=== PATIENT | female | born 1995 | race Two or more races ===

== ENCOUNTER 2019-03-08 03:40 | Emergency (ER) | payer SELFPAY ==
[~2019-03-08] VITALS: Ht 167.6 cm; Wt 70.3 kg
[2019-03-08] MEDS ORDERED: IV NORMAL SALINE 1000ML BAG 1,000 ML IV ONE (04:00)
[2019-03-08 04:32] LABS: BASO % 0 % (0-3); EOS # 0.1 x10^3/uL (0.0-0.7); EOS % 1 % (0-3); HEMOGLOBIN 15.2 g/dL (12.0-15.5); LYMPH # 2.5 x10^3/uL (1.0-4.8); LYMPH % 29 % (24-48); MEAN CORPUSCULAR HEMOGLOBIN 29 pg (25-35); MEAN CORPUSCULAR HGB CONC 35 g/dL (31-37); MEAN CORPUSCULAR VOLUME 82 fL (79-100); MONO # 0.7 x10^3/uL (0.0-1.1); MONO % 8 % (0-9); NEUT # 5.4 x10^3/uL (1.8-7.7); NEUT % 62 % (31-73); PLATELET COUNT 210 x10^3/uL (140-400); RED BLOOD COUNT 5.27 x10^6/uL (3.50-5.40); RED CELL DISTRIBUTION WIDTH 13.9 % (11.5-14.5); WHITE BLOOD COUNT 8.7 x10^3/uL (4.0-11.0)
--- NOTE | 2019-03-08 04:38 | PHYS DOC ---
Past Medical History Past Medical History: Diabetes-Type II Past Surgical History: No Surgical History Smoking: Cigarettes, Less than 1pk/day Alcohol Use: Occasionally Drug Use: None Adult General Chief Complaint Chief Complaint: VAGINAL BLEEDING HPI HPI Ms. Hall is a 23yo F w/ PMH significant for T2DM and previous spontaneous presents with heavy vaginal bleeding and lower abdominal cramping of 1 day duration. She brought in a 3cm sized tissue/clot that was passed. Patient was previously seen by their OBGYN on Monday for confirmation of and again yesterday due to light vaginal bleeding. She states that "everything checked out fine" at yesterday's appointment. She states she experiences regular menstrual cycles with "normal" regular flow. Previous spontaneous occurred about 1.5 years ago; was 1 month along. Review of Systems Review of Systems Constitutional: Denies fever or chills Eyes: Denies redness or eye pain HENT: Denies nasal congestion or sore throat Respiratory: Denies cough or shortness of breath Cardiovascular: Denies chest pain or palpitations GI: Reports lower abdominal pain. Denies nausea or vomiting. 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 Current Medications Current Medications Current Medications Medications (Trade) Dose Ordered Sig/Roselyn Start Time Stop Time Status Last Admin Dose Admin Insulin Human Regular (HumuLIN R VIAL) 14 unit 1X ONCE 03/08/19 06:00 03/08/19 06:01 DC 03/08/19 06:04 14 UNIT Sodium Chloride 1,000 ml @ 1,000 mls/hr 1X ONCE 03/08/19 04:00 03/08/19 04:59 DC 03/08/19 04:52 1,000 MLS/HR Allergies Allergies Allergies Coded Allergies Type Severity Reaction Last Updated Verified No Known Drug Allergies 03/08/19 No Physical Exam Physical Exam Constitutional: Well developed, well nourished, no acute distress, non-toxic appearance HENT: Normocephalic, atraumatic, oropharynx moist Eyes: Conjunctiva normal, no discharge Neck: Normal range of motion, no tenderness, supple Cardiovascular: Heart rate normal, regular rhythm w/o gallops, rubs, or murmurs. Lungs & Thorax: Bilateral breath sounds clear to auscultation throughout, no wheezing Abdomen: Soft, non-distended, lower abdominal tenderness Pelvic: Interlocking Installer- Anjelica RN, external genitalia normal, significant clot noted in vaginal vault, tissue noted in open os which was removed with ring foreceps, no CMT, no adnexal tenderness Skin: Warm, dry, no erythema, no rash Back: No tenderness, no CVA tenderness Extremities: No tenderness, ROM intact, no edema Neurologic: Alert and oriented X 3, normal motor function, normal sensory function, no focal deficits noted Psychologic: Affect normal, judgement normal, mood normal Current Patient Data Vital Signs Vital Signs Date Time Temp Pulse Resp B/P (MAP) Pulse Ox O2 Delivery O2 Flow Rate FiO2 03/08/19 03:46 98.6 82 17 156/97 (116) 99 Room Air 98.6 Lab Values Laboratory Tests Test 03/08/19 04:05 03/08/19 04:15 Maternal Serum HCG Beta Subunit 343 mIU/mL (0-5) H Sodium Level 133 mmol/L (136-145) L Potassium Level 3.6 mmol/L (3.5-5.1) Chloride Level 96 mmol/L (98-107) L Carbon Dioxide Level 27 mmol/L (21-32) Anion Gap 10 (6-14) Blood Urea Nitrogen 11 mg/dL (7-20) Creatinine 0.7 mg/dL (0.6-1.0) Estimated GFR (Cockcroft-Gault) 105.6 BUN/Creatinine Ratio 16 (6-20) Glucose Level 439 mg/dL (70-99) H Calcium Level 9.5 mg/dL (8.5-10.1) Magnesium Level 1.7 mg/dL (1.8-2.4) L Total Bilirubin 0.4 mg/dL (0.2-1.0) Aspartate Amino Transferase (AST) 5 U/L (15-37) L Alanine Aminotransferase (ALT) 13 U/L (14-59) L Alkaline Phosphatase 162 U/L (46-116) H Total Protein 7.9 g/dL (6.4-8.2) Albumin 3.8 g/dL (3.4-5.0) Albumin/Globulin Ratio 0.9 (1.0-1.7) L White Blood Count 8.7 x10^3/uL (4.0-11.0) Red Blood Count 5.27 x10^6/uL (3.50-5.40) Hemoglobin 15.2 g/dL (12.0-15.5) Hematocrit 43.0 % (36.0-47.0) Mean Corpuscular Volume 82 fL (79-100) Mean Corpuscular Hemoglobin 29 pg (25-35) Mean Corpuscular Hemoglobin Concent 35 g/dL (31-37) Red Cell Distribution Width 13.9 % (11.5-14.5) Platelet Count 210 x10^3/uL (140-400) Neutrophils (%) (Auto) 62 % (31-73) Lymphocytes (%) (Auto) 29 % (24-48) Monocytes (%) (Auto) 8 % (0-9) Eosinophils (%) (Auto) 1 % (0-3) Basophils (%) (Auto) 0 % (0-3) Neutrophils # (Auto) 5.4 x10^3/uL (1.8-7.7) Lymphocytes # (Auto) 2.5 x10^3/uL (1.0-4.8) Monocytes # (Auto) 0.7 x10^3/uL (0.0-1.1) Eosinophils # (Auto) 0.1 x10^3/uL (0.0-0.7) Basophils # (Auto) 0.0 x10^3/uL (0.0-0.2) Laboratory Tests 03/08/19 04:15 Laboratory Tests 03/08/19 04:05 Microbiology 03/08/19 Wet Prep - Final, Complete Microbiology 03/08/19 Wet Prep - Final, Complete EKG EKG [] Radiology/Procedures Radiology/Procedures Preliminary US findings were negative for products of conception contained within the uterus.[] Course & Med Decision Making Course & Med Decision Making Pertinent Labs and Imaging studies reviewed. (See chart for details) Patient presented w/ vaginal bleeding during 1st trimester. Tissue sample sent for pathology. Preliminary US negative for intrauterine . Pelvic exam performed w/ chlamydia and gonorrhea testing. Empiric antibiotics deferred. Wet mount negative. Rh positive. Hyperglycemia addressed. Patient stable for discharge with outpatient follow-up with CLAY MACHINE OPERATOR. Discussed findings and plan with patient and family, who acknowledge understanding and agreement. Dragon Disclaimer Dragon Disclaimer This electronic medical record was generated, in whole or in part, using a voice recognition dictation system. Departure Departure Impression: Primary Impression: Spontaneous Additional Impression: Hyperglycemia Disposition: 01 HOME, SELF-CARE Condition: STABLE Patient Instructions: Hyperglycemia, [id number], Miscarriage, [id number] Problem Qualifiers CAREY GRAHAM DO Mar 08, 2019 04:38
[2019-03-08 04:42] LABS: CALCIUM 9.5 mg/dL (8.5-10.1); CREATININE 0.7 mg/dL (0.6-1.0); GFR 105.6; POTASSIUM 3.6 mmol/L (3.5-5.1)
[2019-03-08 04:47] LABS: ALBUMIN 3.8 g/dL (3.4-5.0); ALBUMIN/GLOBULIN RATIO 0.9 (1.0-1.7); MAGNESIUM 1.7 mg/dL (1.8-2.4); TOTAL BILIRUBIN 0.4 mg/dL (0.2-1.0); TOTAL PROTEIN 7.9 g/dL (6.4-8.2)
--- NOTE | 2019-03-08 05:38 | RAD ---
INDICATION: Vaginal bleeding in COMPARISON: None. TECHNIQUE: Grayscale and color ultrasound images uterus and adnexa. Transabdominal and transvaginal images obtained. FINDINGS: Uterus: 85 x 51 x 39 mm. Endometrial Stripe: 12 mm. Right Ovary: 27 x 32 x 18 mm. Left Ovary: 18 x 15 x 12 mm. Vascular flow identified to bilateral ovaries. Small free fluid in the pelvis. Cystic lesion right adnexa measuring about 18 mm. IMPRESSION: 1. No intrauterine gestational sac is identified. 2. Small free fluid within the pelvis. 3. Vascular flow seen in the bilateral ovaries. 4. Cystic structure right adnexa. Could be from a dominant follicle on the right ovary which is the most likely cause however if the patient has a positive beta hCG follow-up could be obtained to ensure that there is no alternative cause such as ectopic. Electronically signed by: Chris Jo MD (03/08/2019 5:35 AM) [facility]
[2019-03-08] MEDS ORDERED: INSULIN REGULAR 100 UNIT/ML 3ML VIAL. SQ ONE ×2 (06:00→07:45)
[2019-03-08 07:24] VITALS: BP 122/82
--- NOTE | 2019-03-11 17:06 | PATHOLOGY ---
[facility] Accession Number: [id number] . 01 Material submitted: . PART A: product of conception - PRODUCTS OF CONCPETION AT 0420 PART B: product of conception - PRODUCTS OF CONCEPTION AT 0510 . 01 Clinical history: . None provided. . 02 Diagnosis: A. Tissue designated "products of conception #1": - Products of conception, comprised of a few immature chorionic villi showing mild hydropic degenerative changes, and portion of decidual cast showing focal hemorrhage and acute inflammation. . B. Tissue designated "products of conception #2": - Portion of decidual cast showing focal hemorrhage and acute inflammation. - No chorionic villi identified. (JPM:shaunna; 03/11/2019) MBR/03/11/2019 . 02 Electronically signed: . Davin Tsai MD, Pathologist NPI- [id number] . 01 Gross description: . A. Received fresh labeled "[place], products of conception" is a 4 g, 5.2 x 2.3 x 1.0 cm portion of red-brown friable soft tissue. No parts are identified. The specimen is submitted entirely in cassettes A1-A3. . B. Received fresh labeled "Rafael Deida, products of conception" is a 5 g, 6.6 x 5.0 x 0.5 cm portion of red-brown friable soft tissue. No parts are identified. Personnel Psychologist sections are submitted in cassettes B1-B3. ([facility]; 03/10/2019) SYC/SYC . 02 Pathologist provided ICD-10: O02.9 . 02 CPT . 332739, 284218 Specimen Comment: A courtesy copy of this report has been sent to Specimen Comment: [phone], . Specimen Comment: Report sent to / DR GRAHAM Performed at: 01 [facility] [address], [place], [place] [id number] MD Ajay Vance MD Phone: [phone] Performed at: 02 [facility] [address], [place] [id number] MD Davin Tsai MD Phone: [phone]
[2019-03-11 17:09] LABS: GC PROBE Negative (Negative)
== END 2019-03-08 07:44 | disposition home or self-care (01) ==
LOC: ER 03:40
DX: O03.9 Complete or unspecified spontaneous abortion without complication (principal); E11.65 Type 2 diabetes mellitus with hyperglycemia; O99.331 Smoking (tobacco) complicating pregnancy, first trimester; F17.210 Nicotine dependence, cigarettes, uncomplicated; Z3A.01 Less than 8 weeks gestation of pregnancy
CPT/HCPCS: 36415; 36430; 76801; 76817; 80053; 82962; 83735; 84702; 85025; 86850; 86900; 86901; 87491; 87591; 96360; 96372; 99285; J1815; J2791; J7030; Q0111

== ENCOUNTER 2019-09-04 13:24 | Emergency (ER) | payer SELFPAY ==
[~2019-09-04] VITALS: Ht 175.3 cm; Wt 70.0 kg
[2019-09-04 15:56] LABS: BASO % 1 % (0-3); EOS % 1 % (0-3); HEMATOCRIT 41.3 % (36.0-47.0); HEMOGLOBIN 14.4 g/dL (12.0-15.5); LYMPH # 2.2 x10^3/uL (1.0-4.8); LYMPH % 31 % (24-48); MEAN CORPUSCULAR HEMOGLOBIN 28 pg (25-35); MEAN CORPUSCULAR HGB CONC 35 g/dL (31-37); MEAN CORPUSCULAR VOLUME 80 fL (79-100); MONO # 0.4 x10^3/uL (0.0-1.1); MONO % 6 % (0-9); NEUT # 4.4 x10^3/uL (1.8-7.7); NEUT % 62 % (31-73); PLATELET COUNT 249 x10^3/uL (140-400); RED BLOOD COUNT 5.16 x10^6/uL (3.50-5.40); RED CELL DISTRIBUTION WIDTH 14.1 % (11.5-14.5); WHITE BLOOD COUNT 7.1 x10^3/uL (4.0-11.0)
[2019-09-04 15:57] LABS: BILIRUBIN,URINE NEGATIVE (NEG); CLARITY,URINE CLEAR; COLOR,URINE YELLOW; NITRITE,URINE NEGATIVE (NEG); PH,URINE 6.5; PROTEIN,URINE NEGATIVE (NEG-TRACE); UROBILINOGEN,URINE 0.2 mg/dL (0.2 mg/dL)
[2019-09-04 16:08] LABS: BACTERIA,URINE 0 /HPF (0-FEW); RBC,URINE TNTC /HPF (0-2); SQUAMOUS EPITHELIAL CELL,UR FEW /LPF
--- NOTE | 2019-09-04 17:29 | PHYS DOC ---
Past Medical History Past Medical History: Diabetes-Type II Past Surgical History: No Surgical History Smoking Status: Current Some Day Smoker Alcohol Use: Occasionally Drug Use: None Adult General Chief Complaint Chief Complaint: VAGINAL BLEEDING [facility] HPI Patient is a 24 year old female, accompanied by her , who presents to the emergency department with complaints of vaginal bleeding and . Patient states that she is 8 weeks . Her last menstrual cycle was on July 09, 2019, her estimated due date is April 152019. Patient states she is 3 para 0, with 2 previous spontaneous miscarriages. 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 Patient states that she is currently having some lower abdominal pain that she rates a 4 out of 10 on the pain scale, she denies any nausea, vomiting, or diarrhea. Patient states that the bleeding started this morning, after having intercourse last night. She is type I diabetic and states she has been taking her medications as previously prescribed, she denies any problems with blood sugar. Patient denies any i rregular vaginal discharge prior to the onset of bleeding, dysuria, hematuria, or increased urinary frequency. All other ROS is neg unless otherwise noted in HPI. Review of Systems Review of Systems See Above Allergies Allergies Allergies Coded Allergies Type Severity Reaction Last Updated Verified No Known Drug Allergies 03/08/19 No Physical Exam Physical Exam See Above Constitutional: Well developed, well nourished, no acute distress, non-toxic appearance. [] HENT: Normocephalic, atraumatic, bilateral external ears normal, nose normal. [] Eyes: PERRLA, EOMI, conjunctiva normal, no discharge. [] Neck: Normal range of motion, no tenderness, supple, no stridor. [] Cardiovascular:Heart rate regular rhythm, no murmur [] Lungs & Thorax: Bilateral breath sounds clear to auscultation, Respirations even and unlabored, no retractions, no respiratory distress [] Pelvic Exam: Information Technology Security Analyst present Kym PETTIT Abdomen: Nontender, soft External Genitalia: Normal Skin Speculum: Normal vaginal mucosa, bloody cervical discharge, OS closed Bimanual: deferred Skin: Warm, dry, no erythema, no rash. [] Extremities: No cyanosis, ROM intact, no edema. [] Neurologic: Alert and oriented X 3, no focal deficits noted. [] Psychologic: Affect normal, judgement normal, mood normal. [] Current Patient Data Lab Values Laboratory Tests Test 09/04/19 15:06 09/04/19 15:10 09/04/19 15:45 Urine Color Yellow Urine Clarity Clear Urine pH 6.5 Urine Specific [place] >=1.030 Urine Protein Negative mg/dL (NEG-TRACE) Urine Glucose (UA) >=1000 mg/dL (NEG) Urine Ketones (Stick) 40 mg/dL (NEG) Urine Blood Large (NEG) Urine Nitrite Negative (NEG) Urine Bilirubin Negative (NEG) Urine Urobilinogen Dipstick 0.2 mg/dL (0.2 mg/dL) Urine Leukocyte Esterase Negative (NEG) Urine RBC Tntc /HPF (0-2) Urine WBC 1-4 /HPF (0-4) Urine Squamous Epithelial Cells Few /LPF Urine Bacteria 0 /HPF (0-FEW) POC Urine HCG, Qualitative Hcg positive (Negative) White Blood Count 7.1 x10^3/uL (4.0-11.0) Red Blood Count 5.16 x10^6/uL (3.50-5.40) Hemoglobin 14.4 g/dL (12.0-15.5) Hematocrit 41.3 % (36.0-47.0) Mean Corpuscular Volume 80 fL (79-100) Mean Corpuscular Hemoglobin 28 pg (25-35) Mean Corpuscular Hemoglobin Concent 35 g/dL (31-37) Red Cell Distribution Width 14.1 % (11.5-14.5) Platelet Count 249 x10^3/uL (140-400) Neutrophils (%) (Auto) 62 % (31-73) Lymphocytes (%) (Auto) 31 % (24-48) Monocytes (%) (Auto) 6 % (0-9) Eosinophils (%) (Auto) 1 % (0-3) Basophils (%) (Auto) 1 % (0-3) Neutrophils # (Auto) 4.4 x10^3/uL (1.8-7.7) Lymphocytes # (Auto) 2.2 x10^3/uL (1.0-4.8) Monocytes # (Auto) 0.4 x10^3/uL (0.0-1.1) Eosinophils # (Auto) 0.0 x10^3/uL (0.0-0.7) Basophils # (Auto) 0.0 x10^3/uL (0.0-0.2) Maternal Serum HCG Beta Subunit 7167 mIU/mL (0-5) H Laboratory Tests 09/04/19 15:45 EKG EKG [] Radiology/Procedures Radiology/Procedures 182- received paper report of the ultrasound from ultrasound at this time: FINDINGS Uterus measures 7.7 x 4.6 x 5.1 cm. Within the uterus there is a gestational sac with pole and yolk sac. [place]-rump length measured at 5 mm. heart rate measured at 101 bpm. Trace amount of free fluid is seen in the cervical canal. Right ovary measures 3.0 x 2.1 x 2.4 cm. Corpus luteum is noted within the right ovary. Left ovary measures 2.2 x 1.7 x 2.0 cm. No free fluid. IMPRESSION 1. Single live intrauterine gestation measured at 6 weeks 2 days like her ultrasound discordant with LMP. Estimated due date is 04/27/2020. 2. Dedicated survey is recommended 18-20 weeks gestation.[] Course & Med Decision Making Course & Med Decision Making Pertinent Labs and Imaging studies reviewed. (See chart for details) Patient is a 24-year-old female who presented to the emergency department with complaints of vaginal bleeding during . Previous blood work showed a blood type of O+. Today's beta hCG level is 7167. Ultrasound revealed heart rate of 101, with embryo measuring 6 weeks and 2 days. According to ultrasound EDC is 04/27/2020 Pt advised of these findings. Advised patient that she needs to contact her OBGyn office and notify them of HCG level and ultrsound findings. Recommend repeat of HCG level in 2 days. Pelvic rest until follow up with OBGyn. Return to the ER for worsening symptoms Pt and her verbalized an understanding of home care, medications, follow-up, and return to ED instructions and were in agreement with the plan of care. [] Dragon Disclaimer Dragon Disclaimer This electronic medical record was generated, in whole or in part, using a voice recognition dictation system. Departure Departure Impression: Primary Impression: Vaginal bleeding affecting early Disposition: HOME, SELF-CARE Condition: STABLE Referrals: NO PCP (PCP) CAREY BLAIR MD Patient Instructions: Vaginal Bleeding During , First Trimester Additional Instructions: Today's beta hCG level is 7167. The Ultrasound revealed a heart rate of 101, your baby measured 6 weeks and 2 days. According to ultrasound your due date is 04/27/2020. Follow up with your OBGyn or Dr. Blair's office in 1-2 days for repeat HCG level, return to the ER. LYNDSEY CASTRO APRN Sep 04, 2019 17:29
--- NOTE | 2019-09-04 18:52 | RAD ---
Exam: Ultrasound OB less than 14 weeks Indication: Pelvic pain Technique: Real-time grayscale and color Doppler images of the pelvis were obtained by the department mining speculator. Comparisons: None FINDINGS: Uterus measures 7.7 x 4.6 x 5.1 cm. Within the uterus there is a gestational sac with pole and yolk sac. [place]-rump length measured at 5 mm. heart rate measured at 101 bpm. Trace amount of free fluid is seen in the cervical canal. Right ovary measures 3.0 x 2.1 x 2.4 cm. Corpus luteum is noted within the right ovary. Left ovary measures 2.2 x 1.7 x 2.0 cm. No free fluid. IMPRESSION: 1. Single live intrauterine gestation measured at 6 weeks 2 days by current ultrasound discordant with LMP. Estimated due date is 04/27/2020 2. Dedicated survey is recommended at 18-20 weeks gestation. Electronically signed by: Radhika Denis MD (09/04/2019 4:37 PM) [facility]
[2019-09-04 19:10] VITALS: BP 146/76
[2019-09-05] MEDS ORDERED: HYDR-3164 PO (05:57)
== END 2019-09-04 19:07 | disposition home or self-care (01) ==
LOC: ER 13:24
DX: O46.91 Antepartum hemorrhage, unspecified, first trimester (principal); R10.30 Lower abdominal pain, unspecified; E11.9 Type 2 diabetes mellitus without complications; F17.200 Nicotine dependence, unspecified, uncomplicated; Z3A.01 Less than 8 weeks gestation of pregnancy
CPT/HCPCS: 36415; 76801; 76817; 81001; 81025; 84702; 85025; 99285

== ENCOUNTER 2019-09-05 04:57 | Emergency (ER) | payer SELFPAY ==
[~2019-09-05] VITALS: Ht 157.5 cm; Wt 70.3 kg
[2019-09-05 05:02] VITALS: BP 162/86
--- NOTE | 2019-09-05 05:17 | PHYS DOC ---
Past Medical History Past Medical History: Diabetes-Type I Past Surgical History: No Surgical History Smoking Status: Current Some Day Smoker Alcohol Use: Occasionally Drug Use: None Adult General Chief Complaint Chief Complaint: VAGINAL BLEEDING HPI HPI 24-year-old female sensitive emergency department with increased abdominal pain, bleeding. Patient was seen yesterday with alter some performed revealing a 6 week, 2 day intrauterine . HCG at that time was 7167. She presents today with increased pain, increased clots, states partially 1 pad per hour. Pain yesterday was approximately 3 minutes described as a 10. She is more pain in her back with radiation to the front. Patient denies any passing of tissue on examination. Nothing makes her symptoms worse, nothing makes her symptoms better . She did try Tylenol however no improvement. Review of Systems Review of Systems Constitutional: Denies fever or chills [] Respiratory: Denies cough or shortness of breath [] Cardiovascular: No additional information not addressed in HPI [] GI: + abdominal pain, nausea, no vomiting, bloody stools or diarrhea [] : Denies dysuria or hematuria [] Musculoskeletal: + back pain Integument: Denies rash or skin lesions [] Neurologic: Denies headache, focal weakness or sensory changes [] All other systems were reviewed and found to be within normal limits, except as documented in this note. Current Medications Current Medications Current Medications Medications (Trade) Dose Ordered Sig/Roselyn Start Time Stop Time Status Last Admin Dose Admin Morphine Sulfate (Morphine Sulfate) 4 mg 1X ONCE 09/05/19 05:45 09/05/19 05:46 DC Ondansetron HCl (Zofran Odt) 4 mg 1X ONCE 09/05/19 05:45 09/05/19 05:46 DC Allergies Allergies Allergies Coded Allergies Type Severity Reaction Last Updated Verified No Known Drug Allergies 03/08/19 No Physical Exam Physical Exam Constitutional: Well developed, well nourished, no acute distress, non-toxic appearance. [] HENT: Normocephalic, atraumatic, bilateral external ears normal, oropharynx moist, no oral exudates, nose normal. [] Eyes: PERRLA, EOMI, conjunctiva normal, no discharge. [] Cardiovascular:Heart rate regular rhythm, no murmur [] Lungs & Thorax: Bilateral breath sounds clear to auscultation [] Abdomen: Bowel sounds normal, soft, mild low TTP, no masses, no pulsatile masses. [] Skin: Warm, dry, no erythema, no rash. [] Back: low back pain, no CVA tenderness. [] Extremities: No tenderness, no edema. [] Neurologic: Alert and oriented X 3, no focal deficits noted. [] Psychologic: Affect normal, judgement normal, mood normal. [] Current Patient Data Vital Signs Vital Signs Date Time Temp Pulse Resp B/P (MAP) Pulse Ox O2 Delivery O2 Flow Rate FiO2 09/05/19 05:02 97.8 78 20 162/86 (111) 99 Room Air 97.8 EKG EKG [] Radiology/Procedures Radiology/Procedures [] Course & Med Decision Making Course & Med Decision Making Pertinent Labs and Imaging studies reviewed. (See chart for details) []24-year-old female sensitive emergency department with increased abdominal pain, bleeding. Patient was seen yesterday with alter some performed revealing a 6 week, 2 day intrauterine . HCG at that time was 7167. She presents today with increased pain, increased clots, states partially 1 pad per hour. Pain yesterday was approximately 3 minutes described as a 10. She is more pain in her back with radiation to the front. Patient denies any passing of tissue on examination. Nothing makes her symptoms worse, nothing makes her symptoms better. She did try Tylenol however no improvement. Previous HCG - 7167 US reviewed from yesterday - repeat here reveals no heart tones Toradol 60mg IM, Morphine IM, Zofran po Discussed with DR. BLAIR - call office today for follow up with repeat HCG in 24 hours Return precautions provided [place] Disclaimer Dragon Disclaimer This electronic medical record was generated, in whole or in part, using a voice recognition dictation system. Departure Departure Impression: Primary Impression: Vaginal bleeding affecting early Additional Impression: demise due to miscarriage Disposition: HOME, SELF-CARE Condition: STABLE Referrals: NO PCP (PCP) Patient Instructions: Intrauterine Demise, Vaginal Bleeding During , First Trimester Additional Instructions: Recommend follow up with PCP 3 - 5 days Return to the ER with worsening symptoms, intractable pain, fever, altered mental status Tylenol/Motrin as needed for pain Lavelle rx provided upon discharge Recommend following with Dr. Blair/OBCHANELL as outpatient for repeat HCG in 24 hours to trend - call office to make appointment You will pass tissue likely over the next several hours and have more cramping Scripts Hydrocodone/Apap 5-325 (NORCO 5-325 TABLET) 1 Each Tablet 1 TAB PO PRN Q6HRS PRN for PAIN, #10 TAB 0 Refills Prov: CHANI LIRA MD 09/05/19 Problem Qualifiers CHANI LIRA MD Sep 05, 2019 05:17
[2019-09-05] MEDS ORDERED: ONDANSETRON ODT 4 MG TAB.RAPDIS. PO ONE (05:45)
[2019-09-05] MEDS ORDERED: MORPHINE SULFATE 4 MG/ML VIAL. IM ONE (05:45)
[2019-09-05] MEDS ORDERED: HYDR-3164 PO (05:57)
[2019-09-05] MEDS ORDERED: KETOROLAC 60 MG/2 ML VIAL. IM ONE (06:00)
--- NOTE | 2019-09-05 06:34 | RAD ---
Transvaginal OB ultrasound HISTORY: Increased bleeding and cramping Sonographic examination appearance was performed by transvaginal technique and multiple static images were obtained. There is a gestational sac in the lower uterine segment and a pole. The crown-rump length of 4.1 mm corresponds to 6 week 1 day gestational age. There is no detectable heartbeat. The right ovary has a corpus luteal cyst but otherwise appears normal. Left ovary is not seen. IMPRESSION: demise. The gestational sac is in the lower uterine segment. Electronically signed by: Joss Sue III, MD (09/05/2019 6:31 AM) [id number]
== END 2019-09-05 06:03 | disposition home or self-care (01) ==
LOC: ER 04:57
DX: O46.91 Antepartum hemorrhage, unspecified, first trimester (principal); O02.1 Missed abortion; M54.5 Low back pain; R10.30 Lower abdominal pain, unspecified; E10.9 Type 1 diabetes mellitus without complications; F17.200 Nicotine dependence, unspecified, uncomplicated; Z3A.01 Less than 8 weeks gestation of pregnancy
CPT/HCPCS: 76817; 96372; 99284; J1885; J2270; Q0162